=== PATIENT | female | born 1985 | race Two or more races ===

== ENCOUNTER 2019-06-25 05:35 | Emergency (ER) | payer SELFPAY ==
[2019-06-25] MEDS ORDERED: NORMAL SALINE 1000 ML 1,000 ML IV ONE (05:52)
[2019-06-25 06:28] LABS: ABSOLUTE BASOPHILS # (AUTO) 0.1 10^3/uL (0.0-0.2); ABSOLUTE EOSINOPHILS # (AUTO) 0.4 10^3/uL (0.0-0.6); ABSOLUTE LYMPHOCYTES (AUTO) 2.1 10^3/uL (0.5-4.7); ABSOLUTE MONOCYTES (AUTO) 0.5 10^3/uL (0.1-1.4); ABSOLUTE NEUT (AUTO) 3.8 10^3/uL (1.7-8.2); BASOPHILS % (AUTO) 1.2 % (0-2); EOSINOPHILS % (AUTO) 6.1 % (0-6); HEMATOCRIT 38.9 % (36.0-47.0); HEMOGLOBIN 13.3 g/dL (12.0-15.5); LYMPHOCYTES % (AUTO) 30.9 % (13-45); MEAN CORPUSCULAR HGB CONC 34.2 g/dL (32.0-36.0); MEAN CORPUSCULAR VOLUME 94 fl (80-97); MONOCYTES % (AUTO) 7.4 % (3-13); PLATELET COUNT 226 10^3/uL (150-450); RED BLOOD COUNT 4.16 10^6/uL (3.72-5.28); RED CELL DISTRIBUTION WIDTH 12.7 % (11.5-14.0); SEGMENTED NEUTROPHILS % (AUTO) 54.4 % (42-78); TOTAL CELLS COUNTED % (AUTO) 100 %; WHITE BLOOD COUNT 6.9 10^3/uL (4.0-10.5)
[2019-06-25 06:30] LABS: APPEARANCE,URINE CLEAR; BILIRUBIN,URINE NEGATIVE (NEGATIVE); COLOR,URINE COLORLESS; GLUCOSE, URINE NEGATIVE (NEGATIVE); KETONES,URINE NEGATIVE (NEGATIVE); LEUKOCYTE ESTERASE,URINE NEGATIVE (NEGATIVE); NITRITE,URINE NEGATIVE (NEGATIVE); PROTEIN,URINE NEGATIVE (NEGATIVE); URINE SPECIFIC GRAVITY 1.004; UROBILINOGEN,URINE NEGATIVE mg/dL (<2.0)
[2019-06-25 06:32] LABS: ALBUMIN 4.1 g/dL (3.5-5.0); ALCOHOL 242 mg/dL (NONE DETECTED); ALKALINE PHOSPHATASE 149 U/L (38-126); ANION GAP 9 (5-19); ASPARTATE AMINO TRANSFERASE 57 U/L (14-36); BILIRUBIN,TOTAL 0.2 mg/dL (0.2-1.3); BLOOD UREA NITROGEN 9 mg/dL (7-20); CALCIUM 8.8 mg/dL (8.4-10.2); CARBON DIOXIDE 26 mmol/L (22-30); CHLORIDE 108 mmol/L (98-107); GLUCOSE 101 mg/dL (75-110); POTASSIUM 3.6 mmol/L (3.6-5.0); TOTAL PROTEIN 6.7 g/dL (6.3-8.2)
--- NOTE | 2019-06-25 06:45 | RADIOLOGY REPORT (SQ) ---
EXAM DESCRIPTION: XR CHEST 1 VIEW COMPLETED DATE/TME: 06/25/2019 05:52 CLINICAL HISTORY: 33 years, Female, ams COMPARISON: None. NUMBER OF VIEWS: 1 TECHNIQUE: Portable chest LIMITATIONS: None. FINDINGS: The heart size is normal. The lungs are clear. No pneumothorax IMPRESSION: Negative chest copyright 2011 [employer]- All Rights Reserved
[2019-06-25 07:07] LABS: URINE AMPHETAMINES SCREEN NEGATIVE; URINE BARBITURATES SCREEN NEGATIVE; URINE BENZODIAZEPINES SCREEN NEGATIVE; URINE COCAINE SCREEN NEGATIVE; URINE MARIJUANA (THC) SCREEN NEGATIVE; URINE METHADONE SCREEN NEGATIVE; URINE PHENCYCLIDINE SCREEN NEGATIVE
--- NOTE | 2019-06-25 07:09 | ER Document Report ---
Entered by RAMIN LAGUNA SCRIBE 06/25/19 0625 Acting as scribe for:KAUSHAL TELLO MD ED Substance Abuse / Acc. OD - General Chief Complaint: ETOH Abuse Stated Complaint: ETOH Time Seen by Provider: 06/25/19 06:14 Mode of Arrival: Ambulatory Information source: Patient Cannot obtain history due to: Altered mental status - ketamine Notes: This 33 year old female patient presents to the emergency department today with complaints of public intoxication. According to EMS, the patient was found outside of a republic[place] quite intoxicated. EMS reported bystanders on scene stated that the patient was attempting to leave the republican and they tried to stop her which caused her to become combative. The patient was quite intoxicated and combative for EMS so 250 mg of Ketamine and a nasal trumpet were administered in the field prior to arrival. TRAVEL OUTSIDE OF THE [place] IN LAST 30 DAYS: No - Related Data Allergies/Adverse Reactions: No Known Allergies Allergy (Unverified 12/23/14 03:30) Past Medical History - General Cannot obtain history due to: Altered mental status - ketamine - Social History Smoking Status: Unknown if Ever Smoked Family History: Reviewed & Not Pertinent Patient has homicidal ideation: No Review of Systems - Review of Systems -: Yes ROS unobtainable due to patient's medical condition Physical Exam - Vital signs Vitals: Temp 97.8 F 06/25/19 05:35 - General General appearance: Other - ketamine, responds to noxious stimuli - HEENT Head: Normocephalic, Atraumatic Eyes: Normal Nasal: Other - Right sided nasal trumpet, saturating 100% on room air Mucous membranes: Dry - Respiratory Respiratory status: Other - Nasal Trumpet right nare Breath sounds: Normal Chest palpation: Normal - Cardiovascular Rhythm: Regular Heart sounds: Normal auscultation Murmur: No - Abdominal Inspection: Normal Distension: No distension Bowel sounds: Normal - Extremities General upper extremity: Normal inspection, Nontender, Normal ROM General lower extremity: Normal inspection, Nontender, Normal ROM - Neurological Neuro grossly intact: No - on ketamine, alert to noxious stimuli Babinski reflex: Normal (flexor plantar) - Skin Skin Temperature: Warm Skin Moisture: Dry Skin Color: Normal Course - Re-evaluation Re-evalutation: 06/25/19 13:18 EtOH was 242 mg%. Urine drug screen is negative. Troponin was undetectable. She is now alert and oriented, and does not remember anything from last night. - Vital Signs Vital signs: Temp Pulse Resp BP Pulse Ox 97.8 F 14 98/57 L 98 06/25/19 05:35 06/25/19 10:31 06/25/19 11:01 06/25/19 11:01 - Laboratory Result Diagrams: 06/25/19 05:40 06/25/19 05:40 Laboratory results interpreted by me: 06/25/19 06/25/19 06/25/19 05:40 05:40 05:40 Eos % (Auto) 6.1 H Chloride 108 H AST 57 H ALT 38 H Alkaline Phosphatase 149 H Creatine Kinase 233 H - Diagnostic Test Radiology reviewed: Image reviewed, Reports reviewed - Chest x-ray is normal. - EKG Interpretation by Me EKG shows normal: Sinus rhythm, [place], QRS Complexes, ST-T Waves. abnormal: Intervals - Borderline prolonged QT interval Rate: Normal - 73 Rhythm: NSR Critical Care Note - Critical Care Note Total time excluding time spent on procedures (mins): 30 Discharge - Discharge Clinical Impression: Unresponsiveness Alcohol intoxication Qualifiers: Complication of substance-induced condition: with unspecified complication Qualified Code(s): F10.929 - Alcohol use, unspecified with intoxication, unspecified Condition: Stable Disposition: HOME, SELF-CARE Additional Instructions: Acute Alcohol Intoxication Your evaluation revealed very high levels of alcohol. You can from drinking a large amount of alcohol rapidly! Further, there's the risk of falls, traffic accidents, and fights. A high portion (about 50 percent) of the serious injuries seen in hospital emergency rooms are caused by alcohol. Alcohol overdosage is usually due to an underlying emotional or psychiatric problem. You may benefit from counselling. If "binge" drinking is an ongoing problem for you, or if you drink ANY AMOUNT of alcohol EVERY day, you most likely have a tendency to alcoholism. You should avoid alcohol totally. We can refer you for treatment. Persons with alcohol problems are often also prone to other addictions -- you should discuss any use of medications or drugs with the doctor. You should be watched at home for the next several hours by someone who has not been drinking. Get extra fluids for the next 24 hours. Call the doctor if there is repeated vomiting, increasing headache, decreasing level of alertness, or any other worsening. You should drink plenty of fluids today. Get plenty of sleep and rest. Take Tylenol and ibuprofen for headache or chest pains. RETURN TO THE EMERGENCY ROOM IF ANY NEW OR WORSENING SYMPTOMS. I personally performed the services described in the documentation, reviewed and edited the documentation which was dictated to the scribe in my presence, and it accurately records my words and actions.
--- NOTE | 2019-06-25 10:18 | EKG REPORT ---
SEVERITY:- BORDERLINE ECG - SINUS RHYTHM BORDERLINE PROLONGED QT INTERVAL : Confirmed by: Joelle Velásquez MD 25-Jun-2019 10:17:20
[2019-06-25 14:32] VITALS: BP 104/64
--- NOTE | 2019-06-26 05:00 | ER Document Report ---
Entered by CYNDI COYLE SCRIBE 06/25/19 0556 Acting as scribe for:DAVION CASTANEDA IV, MD ED Medical Screen (RME) - General Chief Complaint: Alcohol Withdrawl Stated Complaint: ETOH Mode of Arrival: Stretcher Information source: Emergency Med Personnel Notes: This 33 year old female patient brought in by EMS presents to the ED today with complaints of ETOH withdrawal. EMS states that the patient was at a friend's house around 0030 this morning and drank "a few beers and some vodka" per patient's friends. EMS reports that the patient attempted to leave and when the friends tried to stop her, she started hyperventilating, vomited, and then passed out twice. EMS states that they witnessed one of the patient's syncopal episodes and that she lost consciousness for approximately x5 minutes. They state that when she came to, she began "fighting" again, so they administered 250 mg Ketamine IM. They also administered 650 ml LR and 4 mg Zofran. EMS reports that post-Ketamine administration, they placed a nasal trumpet in the patient's right nare and had to administer assisted ventilation because it seemed like the patient was "holding her breath." Per EMS, the patient was able to report a history of anxiety and anterior chest wall discomfort when she was alert; they state that when the patient passed out prior to their arrival, a friend at the scene administered chest compressions. EMS states that the patient was alert to self. I have greeted and performed a rapid initial assessment of this patient. A comprehensive ED assessment and evaluation of the patient, analysis of test results and completion of medical decision making process will be conducted by an additional ED providers. TRAVEL OUTSIDE OF THE [place] IN LAST 30 DAYS: No - Related Data Allergies/Adverse Reactions: No Known Allergies Allergy (Unverified 12/23/14 03:30) Physical Exam - General General appearance: Other - Somnolent In distress: None - Respiratory Respiratory status: No respiratory distress Chest status: Nontender Breath sounds: Normal Chest palpation: Normal - Cardiovascular Rhythm: Regular Heart sounds: Normal auscultation Murmur: No Friction rub: No Gallop: None auscultated I personally performed the services described in the documentation, reviewed and edited the documentation which was dictated to the scribe in my presence, and it accurately records my words and actions.
== END 2019-06-25 14:32 | disposition home or self-care (01) ==
LOC: ER 05:35
DX: F10.129 Alcohol abuse with intoxication, unspecified (principal); Y90.8 Blood alcohol level of 240 mg/100 ml or more
CPT/HCPCS: 93005; 99291; 96360; 36415; 80307 ×2; 82550; 85025; 81025; 80053; 81001; 84484; 71045; 93010; J7030